=== PATIENT | male | born 1940 | race Caucasian/White ===

== ENCOUNTER 2017-03-08 13:43 | Inpatient (IN) | payer BC, MEDICARE ==
[2017-03-08] MEDS ORDERED: SODIUM CHLORIDE 0.9% 1,000 ML IV ONE ×2 (14:08→14:44)
[2017-03-08] MEDS ORDERED: FAMOTIDINE 20 MG/50 ML 50 ML IV ONE ×2 (14:18→14:44)
[2017-03-08] MEDS ORDERED: ONDANSETRON 4 MG/2 ML VIAL IVP PRN (15:31)
[2017-03-08] MEDS ORDERED: HYDROcod/ACETAM 5/325 MG TABLET PO PRN (15:31)
[2017-03-08] MEDS ORDERED: SODIUM CHLORIDE FLUSH 0.9% 10 ML SYRINGE IVP PRN (15:31)
[2017-03-08] MEDS ORDERED: ACETAMINOPHEN 325 MG TABLET PO PRN (15:31)
[2017-03-08] MEDS: SODIUM CHLORIDE 0.9% 1,000 ML IV SCH (18:47)
[2017-03-08] MEDS: PANTOPRAZOLE 40 MG VIAL IVP SCH (20:10)
[2017-03-08] MEDS: SODIUM CHLORIDE FLUSH 0.9% 10 ML SYRINGE IVP SCH (20:11)
[2017-03-09] MEDS: SODIUM CHLORIDE FLUSH 0.9% 10 ML SYRINGE IVP SCH ×3 (05:16→21:14)
[2017-03-09] MEDS: PANTOPRAZOLE 40 MG VIAL IVP SCH ×2 (06:15→17:27)
[2017-03-09] MEDS: SODIUM CHLORIDE 0.9% 1,000 ML IV SCH ×3 (09:17→21:14)
[2017-03-09] MEDS: POLYETHYLENE GLYCOL 3350 17 GM PACKET PO SCH (09:19)
[2017-03-09] MEDS ORDERED: METHOCARBAMOL 500 MG TABLET PO PRN (14:00)
[2017-03-09] MEDS: MULTIVITAMIN TABLET PO SCH (14:24)
[2017-03-09] MEDS: hydroCHLOROthiazide 25 MG TABLET PO SCH (14:24)
[2017-03-09] MEDS: POTASSIUM CHLORIDE 10 MEQ CAPSULE PO SCH (14:24)
[2017-03-09] MEDS ORDERED: NORTRIPTYLINE 10 MG CAPSULE PO SCH (21:00)
[2017-03-10] MEDS: SODIUM CHLORIDE FLUSH 0.9% 10 ML SYRINGE IVP SCH (06:14)
[2017-03-10] MEDS: PANTOPRAZOLE 40 MG VIAL IVP SCH (06:14)
[2017-03-10] MEDS: POLYETHYLENE GLYCOL 3350 17 GM PACKET PO SCH (07:37)
[2017-03-10] MEDS: POTASSIUM CHLORIDE 10 MEQ CAPSULE PO SCH (07:37)
[2017-03-10] MEDS: SODIUM CHLORIDE 0.9% 1,000 ML IV SCH (07:37)
[2017-03-10] MEDS: MULTIVITAMIN TABLET PO SCH (07:37)
[2017-03-10] MEDS: hydroCHLOROthiazide 25 MG TABLET PO SCH (07:37)
== END 2017-03-10 08:45 | disposition home or self-care (01) | DRG 699 ==
PROC: 30233N1 Transfusion of Nonautologous Red Blood Cells into Peripheral Vein, Percutaneous Approach (ICD-10-PCS; principal; 2017-03-08)
DX: N28.9 Disorder of kidney and ureter, unspecified (principal); K92.1 Melena; D62 Acute posthemorrhagic anemia; N17.9 Acute kidney failure, unspecified; I95.9 Hypotension, unspecified; H81.10 Benign paroxysmal vertigo, unspecified ear; I10 Essential (primary) hypertension; G89.29 Other chronic pain; M54.9 Dorsalgia, unspecified; F32.9 Major depressive disorder, single episode, unspecified; K59.00 Constipation, unspecified; E78.00 Pure hypercholesterolemia, unspecified; E66.9 Obesity, unspecified; Z68.28 Body mass index [BMI] 28.0-28.9, adult; Z87.891 Personal history of nicotine dependence; Z96.649 Presence of unspecified artificial hip joint; Z79.1 Long term (current) use of non-steroidal anti-inflammatories (NSAID); Z79.82 Long term (current) use of aspirin; Z79.899 Other long term (current) drug therapy

== ENCOUNTER 2024-03-19 11:41 | Outpatient (CLI) | payer MEDICARE ==
--- NOTE | 2024-03-19 12:00 | XRAY Report ---
PROCEDURE: Chest 2V INDICATIONS: ABNORMAL BREATH SOUNDS TECHNIQUE: 2 views of the chest were acquired. COMPARISON: 03/08/2017. FINDINGS: Surgical changes and devices: None. Lungs and pleura: No pleural effusions or pneumothorax. Lungs are clear. Mediastinum: Mediastinal contours appear normal. Heart size is normal. Bones and chest wall: No suspicious bony lesions. Overlying soft tissues appear unremarkable. Zuleika vated left hemidiaphragm. IMPRESSION: No acute cardiopulmonary process. Elevated left hemidiaphragm, new from prior. Findings may indicate phrenic nerve injury or paralysis. Reviewed by: Ronny Galicia MD on 03/19/2024 11:59 AM PDT Approved by: Ronny Galicia MD on 03/19/2024 11:59 AM PDT Station ID: [id number]
== END 2024-03-19 11:42 | disposition home or self-care (01) ==
LOC: DI.S 11:41
PROVIDERS: ATTEND Nurse Practitioner Family
DX: J98.6 Disorders of diaphragm (principal); R09.89 Other specified symptoms and signs involving the circulatory and respiratory systems

== ENCOUNTER 2024-04-02 08:43 | Outpatient (CLI) | payer MEDICARE ==
--- NOTE | 2024-04-02 09:12 | Ultrasound Report ---
PROCEDURE: Aorta Screening INDICATIONS: HIST OF SMOKING TECHNIQUE: Real time scanning was performed of the aorta and iliac arteries, with image documentatio n. COMPARISON: None. FINDINGS: Aorta: Proximal aortic diameter measures 2.3 x 2.6 cm. Mid-aorta measures 1.8 x 1.7 cm. Distal aor tic diameter is 2.2 x 2 cm. Iliac arteries: Right common iliac artery measures 1.3 cm. Left common iliac artery measures 1.2 cm . Atherosclerotic calcifications seen throughout. IMPRESSION: No abdominal aortic aneurysm. Proximal aorta measures up to 2.6 cm. Consider 5 year follow-up. Recommended intervals for follow-up imaging of ectatic aortas and abdominal aortic aneurysms, per ACR consensus guidelines: 2.5-2.9 cm: 5 years 3.0-3.4 cm: 3 years 3.5-3.9 cm: 2 years 4.0-4.4 cm: 1 year 4.5-4.9 cm: 6 months + endovascular referral 5.0-5.5 cm: 3-6 months + endovascular referral Reviewed by: Leonardo Cid MD on 04/02/2024 9:11 AM PDT Approved by: Leonardo Cid MD on 04/02/2024 9:11 AM PDT Station ID: [id number]
== END 2024-04-02 08:44 | disposition home or self-care (01) ==
LOC: DI 08:43
PROVIDERS: ATTEND Nurse Practitioner Family
DX: Z13.6 Encounter for screening for cardiovascular disorders (principal); Z87.891 Personal history of nicotine dependence

== ENCOUNTER 2024-05-14 08:11 | Outpatient (CLI) | payer MEDICARE ==
[2024-05-14 15:55] LABS: ALBUMIN/GLOBULIN RATIO 1.5 (1.0-2.2); ALKALINE PHOSPHATASE 99 IU/L (42-121); ALT ALANINE AMINOTRANSFERASE 12 IU/L (10-60); AST ASPARTATE AMINOTRANSFERASE 12 IU/L (10-42); BILIRUBIN,TOTAL 0.6 mg/dL (0.2-1.0); BUN - BLOOD UREA NITROGEN 27 mg/dL (6-20); CARBON DIOXIDE - CO2 28 mmol/L (21-32); CHLORIDE 104 mmol/L (101-111); CHOLESTEROL 118 mg/dL; CREATININE 1.4 mg/dL (0.6-1.3); GFR - MDRD 49 (>89); GLUCOSE 87 mg/dL (74-104); HDL CHOLESTEROL 58 mg/dL; LDL CHOLESTEROL,CALCULATED 37 mg/dL; LDL/HDL RATIO 0.6 (<3.6); POTASSIUM 3.8 mmol/L (3.5-4.5); SODIUM 137 mmol/L (135-145); TOTAL PROTEIN 6.6 g/dL (6.4-8.9); TRIGLYCERIDES 114 mg/dL (48-352); VLDL CHOLESTEROL 23 mg/dL
== END 2024-05-14 08:12 | disposition home or self-care (01) ==
LOC: LAB.S 08:11
PROVIDERS: ATTEND Nurse Practitioner Family
DX: E78.5 Hyperlipidemia, unspecified (principal)
CPT/HCPCS: 36415; 80053; 80061; 83721

== ENCOUNTER 2024-05-26 14:01 | Outpatient (CLI) | payer MEDICARE ==
--- NOTE | 2024-05-26 14:59 | Sleep Patient Instructions ---
Sleep Center Visit Summary - Patient Visit Information Reason for Visit: Initial consult for evaluation of sleep disordered breathing and other sleep issues. - Patient Instructions Instructions Attached: Sleep Study Additional Instructions: You will be completing a sleep study, either an in-lab polysomnography (PSG) or home sleep study (HST). You will follow-up in the sleep care office after the sleep study is completed to hear the results and talk about therapy, if needed. You will be called by our office staff to schedule this appointment, but you may contact us with any questions. - Clinic Information Contact[facility] [address] [place] [address] [email or web address] T: [phone]
--- NOTE | 2024-05-26 15:05 | SLEEP CARE CONSULTATION ---
Information from patient questionnaire entered by Janine Keene. I have reviewed and concur with the information entered by Janine Keene. This document represents the service I personally performed and the decisions made by me, Aleena Yeboah ARNP. History of Present Illness Service Date and Time: 05/26/2024 1401 Reason for Visit: New patient, Previously diagnosed sleep apnea Accompanied by: daughter Chief Complaint: reports: Snoring Date of Onset: 20+YRS Usual bedtime: [id number] Time it takes to fall asleep: 60 MINS Snores at night: Yes Observed to quit breathing while asleep: No Sleeps alone due to snoring: Yes Number of times waking at night: 1 Reasons for waking at night: reports: Snoring (once, long time ago), Other (UNKNOWN). denies: Choking, Gasping for air Toss, Turn, or Twitch while sleeping: Yes Recalls having dreams: Yes (don't remember them) Usually gets out of bed at: 08-0900 Feels refreshed in the morning: Yes Morning headache: Yes (1 time a month, gone within hour after coffee) Sleepy or fatigued during the day: No Ever fallen asleep while driving: Yes (he does not drive anymore, has neuropathy) Takes day naps: No (no intentional naps; unintentional naps about 3-4 days a week, 15+ mins) Prior sleep studies: Yes Additional HPI information: I had the pleasure of seeing GRAY DE LEON today regarding the possibility of him having a sleep disorder. His current complaint is snoring. He says he used to have a CPAP many years ago but did not like it. It was like "being tethered" and was uncomfortable. His nose would become congested and he had could not breathe through his nose. His did tell him he would stop breathing. He does not think it is a problem because he "didn't ". He was originally diagnosed in 2003. He tried the CPAP for about 2 years before he discontinued using it at all so he could get a good night's rest. He comes back because doctor referred him. He still snores loudly and will take multiple naps during the day. He usually falls asleep when watching TV. He does not drive because he had neuropathy in his legs/feet. - Parasomnia Symptoms Ever been unable to move upon waking from sleep: No Walks in sleep: No Talks in sleep: No Ever acted out dreams in sleep: No Ever felt weak in the knees when startled or emotional: No Bothered by creepy, crawly, restless sensations in legs: No Problems with memory or concentration: No Subjective Initial [place] Sleepiness Scale score: 12 (05/26/24) Past Medical History Past Medical History: reports: Hypertension, Gout, Other (bilateral leg neuropathy) Social History The patient's occupation is a RETIRED. Patient is and lives in [place]. Have you smoked in the past 12 months: No Alcohol use: No Caffeine use: Yes Caffeine amount and frequency: 2-3 CUPS COFFEE DAILY Family History Family history of sleep disordered breathing: Yes Family Hx Sleep Apnea: Mother: Snoring Allergies and Home Medications Known drug allergies: Yes (as listed) Drug allergies reviewed: Yes Home medication list reviewed: Yes (as listed) Allergy and home medication list: Allergies ibuprofen Allergy (Verified 05/24/24 11:22) Unknown oxycodone HCl * [From OxyContin] Allergy (Verified 05/24/24 11:22) Nausea Home Medications Medication Instructions Recorded Confirmed Last Taken Type Cholecalciferol (Vitamin D3) 2,000 units PO DAILY 03/08/17 05/26/24 03/08/17 History [Vitamin D3] Metoprolol Tartrate 50 mg PO BID 03/08/17 05/26/24 03/08/17 History Multivitamin [Theragran] 1 tab PO DAILY 03/08/17 05/26/24 Unknown History Nortriptyline HCl 20 mg PO QPM 03/08/17 05/26/24 03/07/17 History allopurinoL [Allopurinol] 300 mg PO DAILY 03/08/17 05/26/24 03/08/17 History hydroCHLOROthiazide 25 mg PO DAILY 03/08/17 05/26/24 03/08/17 History [Hydrochlorothiazide] lisinopriL [Lisinopril] 10 mg PO DAILY 03/08/17 05/26/24 03/08/17 History Rosuvastatin Vitamin B12 Review of Systems Weight loss over past 5 years: 25 Cardiovascular: reports: high blood pressure, leg or foot swelling Gastrointestinal: denies: heartburn Neurological: reports: gait or balance problems. denies: headaches Psychiatric: denies: anxiety, depression Ear/Nose/Throat: reports: nasal congestion, wisdom teeth removed. denies: tonsillectomy Immunologic: reports: sneezing Physical Exam Vital signs obtained and entered by: JANINE Garsia MA Blood Pressure: 103/64 (RIGHT ARM) Cuff size: regular Heart Rate: 87 O2 Saturation: 98 Height: 5 ft 9.5 in Weight: 190 lb Body Mass Index: 27.6 BMI Classification: Overweight Neck circumference: 18 Mouth and throat: narrow oropharynx Soft palate: normal Hard palate: normal Uvula: normal Uvula visualization: 50% Mallampati Class II Tongue: enlarged in size with teeth osorio on lateral edges Tonsils: small Neck: normal w/o lymphadenopathy or thyromegaly Heart: regular rate and rhythm Lungs: clear bilaterally Impression and Plan 1. Suspected Obstructive Sleep Apnea-Hypopnea Syndrome, as previously diagnosed and as still suggested by a history of loud and irregular snoring, observed cessation of breath while asleep, and excessive daytime sleepiness. I recommend proceeding to polysomnography to confirm the diagnosis and to assess severity. If the patient has significant sleep disordered breathing, a manual CPAP titration study will also be performed to find the optimal treatment pressure. I informed the patient of what the sleep studies involve and after some discussio n, obtained agreement to proceed. The pathophysiology of obstructive sleep apnea-hypopnea syndrome was discussed with the patient and health risks of cardiovascular and cerebrovascular disease if not treated. Risks of drowsy driving discussed in detail and patient advised to avoid long distance driving and to supervisor [employer] at the first sign of drowsiness. Patient agreed to plan. * Schedule polysomnography * Avoid long distance driving or driving when feeling sleepy. * Avoid alcohol, sedative and muscle relaxant around bedtime. * Attempt to lose weight. * Review instructions provided by trained office staff on how to prepare for the sleep study. * Return for follow-up after sleep study completed. Counseling Topics: Weight loss health impact Plan: PSG and follow up Visit Type: In Office Time Spent with Patient (minutes): 40 Provider Statement: I spent 100% of the Face to Face Visit with the patient with greater than 50% spent counseling the patient and coordination of care.
[2024-05-26 15:10] VITALS: BP 103/64; O2SAT 98
== END 2024-05-26 14:02 | disposition home or self-care (01) ==
LOC: SC 14:01
PROVIDERS: ATTEND Nurse Practitioner Family
DX: G47.33 Obstructive sleep apnea (adult) (pediatric) (principal); E66.3 Overweight; Z68.27 Body mass index [BMI] 27.0-27.9, adult
CPT/HCPCS: 99203; G0463; 99212

== ENCOUNTER 2024-06-07 12:14 | Outpatient (CLI) | payer MEDICARE | END 2024-06-07 12:15 | disposition home or self-care (01) | LOC: SC 12:14 | PROVIDERS: ATTEND Nurse Practitioner Family | DX: G47.33 Obstructive sleep apnea (adult) (pediatric) (principal); R09.02 Hypoxemia; R00.0 Tachycardia, unspecified; E66.3 Overweight; Z68.28 Body mass index [BMI] 28.0-28.9, adult | CPT/HCPCS: G0399 ×2; 95806 ==

== ENCOUNTER 2024-06-22 08:49 | Outpatient (CLI) | payer MEDICARE ==
--- NOTE | 2024-06-22 10:28 | Sleep Patient Instructions ---
Sleep Center Visit Summary - Patient Visit Information Reason for Visit: Sleep study follow-up - Patient Instructions Additional Instructions: You are being started on CPAP therapy with pressure setting at 4-15 cmH2O. You will need to call the sleep care office to set up your follow up once you have your CPAP machine to check compliance and response to therapy at that time. You may call the office with any concerns about pressure feeling too low or too much for adjustment, if needed. You should contact DME supplier for any questions or concerns about mask or equipment. Please call office to schedule a follow up appointment in the sleep care office one month after obtaining new device. - Clinic Information Contact: [facility] [address] [place] [address] [email or web address] T: [phone]
[2024-06-22 10:38] VITALS: BP 103/63; O2SAT 96
--- NOTE | 2024-06-22 10:38 | SLEEP CARE CONSULTATION ---
Information from patient questionnaire entered by Gisselle Keene. I have reviewed and concur with the information entered by Gisselle Keene. This document represents the service I personally performed and the decisions made by me, Aleena Yeboah ARNP. History of Present Illness Service Date and Time: 06/22/2024 0849 Accompanied by: Spouse Initial [place] Sleepiness Scale score: 12 (05/26/24) Current [place] Sleepiness Scale score: 4 (06/22/24) Additional HPI information: GRAY DE LEON returns with spouse for follow up and results of the recently performed home sleep study. The sleep study done on 06/07/2024 showed severe obstructive sleep apnea with an average AHI of 35.3 and brian oxygen saturation of 62%. The quality of the study was poor due to unreliable pulse oximetry data. He has neuropathy in his hands and usually they are very cold and hard to get pulse oximetry signals normally. I explained the pathophysiology behind obstructive sleep apnea. We then spent quite a bit of time discussing different treatment options. For mild obstructive sleep apnea, surgery and oral appliance are alternatives to nasal CPAP therapy but in moderate or severe cases, nasal CPAP is the most effective and reliable treatment. Because apnea is primarily in supine position, then positional management therapy could be effective. Methods discussed such as positioning with pillows, using a T-shirt with tennis balls in the back or commercial products that have a pillow format on back to prevent supine sleep. I reviewed the impact of weight changes on sleep apnea and strongly recommended losing weight. After some discussion, the patient opted to go with the nasal CPAP therapy. Nasal autoCPAP set at 4-15 cmH20 will be ordered with rationale explained. A manual titration study will be ordered if unable to find optimal pressure with office adjustments. I explained how CPAP machine works and what to expect when using the machine. Using CPAP every night in order to get used to it was emphasized. Patient advised to put CPAP mask on before getting into bed so as not to fall asleep without CPAP. To assist acclimation to CPAP use, it could also be used for a short time during day while reading or watching TV. The patient was instructed to call the CPAP supplier to discuss any mechanical problem that may occur. If the mask given is uncomfortable or is difficult to keep on through the night ev en with adjustment, contact the CPAP supplier as many will replace with another mask style if notified before 30 days. If snoring or perceives is not getting enough air or too much air from the machine, notify this office. Sleep Study - Results Type of Sleep Study: Home sleep study (COMPLETED 06/07/24) Prior sleep studies: Yes Polysomnography/Home Sleep Study results: Physician Impression: The quality of the study is poor due to unreliable pulse oximetry data. The length of the study is adequate (> 240 minutes). Please also see the tabulated and graphic data. 1. Obstructive Sleep Apnea-Hypopnea (ICD-10 G47.33), severe, with an AHI of 35.3/hr and brian SaO2 of 62%. During the study, the patient had 178 apneas (177 obstructive, 1 central, 0 mixed) and 13 hypopneas. The longest episode lasted 71.5 seconds. The respiratory events occurred more frequently during supine sleep (supine AHI was 37.3 and non-supine, 5.97). 2. Hypoxemia (ICD-10 R09.02), moderate, with the lowest oxygen saturation of 62 % and 70.8 minutes with SaO2 under 90%. Baseline oxygen saturation was normal (Average oxygen saturation was 93%). However, these numbers are not accurate. 3. Tachycardia, with maximum recoded heart rate of 167 beats per minute. This is also inaccurate. Allergies and Home Medications Known drug allergies: Yes (as listed) Drug allergies reviewed: Yes Home medication list reviewed: Yes (no changes) Allergy and home medication list: Allergies ibuprofen Allergy (Verified 06/22/24 09:16) Unknown oxycodone HCl * [From OxyContin] Allergy (Verified 06/22/24 09:16) Nausea Review of Systems Review of systems same as previous: Yes (NO CHANGE) Physical Exam Vital signs obtained and entered by: GISSELLE Garsia MA Blood Pressure: 103/63 (RIGHT ARM) Cuff size: regular Heart Rate: 57 O2 Saturation: 96 Height: 5 ft 9.5 in Weight: 192 lb Body Mass Index: 27.9 BMI Classification: Overweight Impression and Plan 1. Obstructive Sleep Apnea-Hypopnea Syndrome, severe, with lowest oxygen saturation of 62% (unreliable pulse oximetry). Obviously this is the cause of the patients symptoms of unrefreshed sleep, and excessive daytime sleepiness. Positive pressure therapy could benefit hypertension. As mentioned above, the patient will be started on nasal autoCPAP therapy with pressure set at 4-15 cmH2 O. A manual titration study will be completed if unable to find optimal treatment pressure with office adjustments. Compliance guidelines also reviewed. A copy of compliance guidelines will be given for reference at check out. Because the apnea is more severe supine, I instructed to avoid sleeping supine using pillow positioning until able to start CPAP use. 2. Overweight, unspecified. Currently patients BMI is 27.9. Obesity increases the risk of apnea, CPAP pressure requirements and overall health risks especially cardiovascular and diabetes. Thus patient is advised to lose weight. * Nasal auto CPAP therapy, pressure at 4-15 cm H2O. * Attempt to lose weight. * Avoid alcohol consumption near bedtime. * Avoid supine sleep until using CPAP. * The patient is again cautioned about driving until sleepiness completely resolves. * Return one month after CPAP obtained. I will assess response to therapy and compliance at that time. Counseling Topics: Weight loss health impact Prescriptions: Auto CPAP Plan: Start CPAP and compliance followup Visit Type: In Office Time Spent with Patient (minutes): 35 Provider Statement: I spent 100% of the Face to Face Visit with the patient with greater than 50% spent counseling the patient and coordination of care.
== END 2024-06-22 08:50 | disposition home or self-care (01) ==
LOC: SC 08:49
PROVIDERS: ATTEND Nurse Practitioner Family
DX: G47.33 Obstructive sleep apnea (adult) (pediatric) (principal); E66.3 Overweight; Z68.27 Body mass index [BMI] 27.0-27.9, adult
CPT/HCPCS: 99214; G0463; 99212